=== PATIENT | female | born 1950 | race Caucasian/White ===

== ENCOUNTER 2020-12-19 06:14 | Inpatient (IN) | payer MEDICARE, OTHER ==
[2020-12-11 12:25] LABS: BASOPHILS % (AUTO) 0.8 % (0-1); EOSINOPHILS # (AUTO) 0.5 X10'3 (0-0.9); EOSINOPHILS % (AUTO) 8.7 % (0-6); LYMPHOCYTES # (AUTO) 1.2 X10'3 (1.1-4.8); LYMPHOCYTES % (AUTO) 21.3 % (21-51); MEAN CORPUSCULAR HEMOGLOBIN 31.4 PG (27.0-31.0); MEAN CORPUSCULAR HGB CONC 33.3 g/dL (33.0-36.5); MEAN CORPUSCULAR VOLUME 94.2 FL (78-98); MEAN PLATELET VOLUME 7.7 FL (7.4-10.4); MONOCYTES # (AUTO) 0.6 X10'3 (0-0.9); MONOCYTES % (AUTO) 10.3 % (2-12); NEUTROPHILS # (AUTO) 3.4 X10'3 (1.8-7.7); NEUTROPHILS % (AUTO) 58.9 % (42-75); PRE OP HEMATOCRIT 38.7 % (35.0-45.0); PRE OP HEMOGLOBIN 12.9 g/dL (12.0-16.0); PRE OP PLATELET COUNT 274 X10'3 (140-440); RED BLOOD COUNT 4.11 X10'6 (4.20-5.60); RED CELL DISTRIBUTION WIDTH 15.3 % (11.5-14.5)
[2020-12-11 12:35] LABS: ALBUMIN 3.5 G/DL (3.4-5.0); ALBUMIN/GLOBULIN RATIO 0.8 (1.1-1.5); ALKALINE PHOSPHATASE 138 IU/L (46-116); BLOOD UREA NITROGEN 5 MG/DL (7-18); BUN/CREATININE RATIO 7.2 (6.6-38.0); CALCIUM 8.6 MG/DL (8.5-10.1); CHLORIDE 104 MMOL/L (99-107); CREATININE 0.69 MG/DL (0.40-0.90); PRE OP ALT 24 U/L (30-65); PRE OP ANION GAP 8 (8-16); PRE OP AST 21 U/L (10-37); PRE OP BILIRUB, TOTAL 0.3 MG/DL (0.0-1.0); PRE OP GLUCOSE 95 MG/DL (70-104); PRE OP POTASSIUM 4.3 MMOL/L (3.4-5.1); PRE OP SODIUM 139 MMOL/L (135-145); TOTAL CARBON DIOXIDE 27.5 MMOL/L (24-32); TOTAL PROTEIN 7.7 G/DL (6.4-8.2); eGFR 84 ML/MIN
[~2020-12-19] VITALS: Ht 157.5 cm; Wt 80.0 kg
[2020-12-19] VITALS (19 sets, daily range): BP systolic 124–160; BP diastolic 60–82
[~2020-12-19 06:14] MED LIST: albuterol 2.5 MG/3 ML nebule NEB ONE; cefazolin/dext.iso 2gm/100ml IV ONE; famotidine 20mg tablet PO ONE
[2020-12-19] MEDS ORDERED: MONT10TA32 PO (06:49)
[2020-12-19] MEDS ORDERED: CHOL5000 PO (06:49)
[2020-12-19] MEDS ORDERED: GABA-534 PO (06:49)
[2020-12-19] MEDS ORDERED: FLUT1DIS PO (06:49)
[2020-12-19] MEDS ORDERED: FEXO-61 PO (06:49)
[2020-12-19] MEDS ORDERED: TRAM50TA2 PO (06:49)
[2020-12-19] MEDS ORDERED: MECO10005 PO (06:53)
[2020-12-19] MEDS ORDERED: AZEL205. BOTHNARES (06:53)
[2020-12-19] MEDS: ringers solution, lacted 1,000 ML IV SCH ×2 (07:10→14:53)
[2020-12-19] MEDS ORDERED: BUPIVAcaine/PF 2.5mg/ml (0.25%) 10ml vial ONE ×2 (09:17→10:57)
[2020-12-19] MEDS ORDERED: ringers solution, lacted 1,000 ML IV SCH (09:20)
[2020-12-19] MEDS ORDERED: proCHLORperazine 10 MG/2 ml inj IV PRN (09:20)
[2020-12-19] MEDS ORDERED: morphine 4 MG/ML inj SYRINge IV PRN (09:20)
[2020-12-19] MEDS ORDERED: morphine 2 MG/ML inj. syringe IV PRN (09:20)
[2020-12-19] MEDS ORDERED: ondansetron/PF 4mg/2ml inj IV PRN ×2 (09:20→11:50)
[2020-12-19] MEDS ORDERED: meperidine/PF 25mg/ml syringe IV PRN ×3 (09:20)
[2020-12-19] MEDS ORDERED: midazolam 1 mg/ML 2ml injection ONE (09:27)
[2020-12-19] MEDS ORDERED: fentaNYL /PF 50mcg/ml 5ml ampule ONE (09:28)
[2020-12-19] MEDS ORDERED: propofol inj 20 ML IV ONE (09:28)
[2020-12-19] MEDS ORDERED: rocuronium 10mg/ml inj IV ONE (09:28)
[2020-12-19] MEDS ORDERED: sevoflurane 250ml liquid IH ONE (09:39)
[2020-12-19] MEDS ORDERED: ondansetron/PF 4mg/2ml inj ONE (11:46)
[2020-12-19] MEDS ORDERED: dexamethasone sod phosphate 4mg/ml inj. ONE (11:47)
[2020-12-19] MEDS ORDERED: neostigmine methylsulfate 1 MG/ML 10ml vial ONE (11:48)
[2020-12-19] MEDS ORDERED: glycopyrrolate 0.2mg/ml inj ONE (11:49)
[2020-12-19] MEDS ORDERED: acetaminophen 325mg tablet PO PRN ×2 (11:50)
[2020-12-19] MEDS ORDERED: CADD PCA waste documentation MC PRN (11:50)
[2020-12-19] MEDS ORDERED: naloxone 0.4 mg/ml inj IV PRN (11:50)
[2020-12-19] MEDS ORDERED: HYDROcodone/acetaminophen 5mg/325mg tablet PO PRN (11:50)
--- NOTE | 2020-12-19 12:04 | NUR ---
Received from OR via SURGICAL BED , accompanied by Anesthesiologist LANDON and report given by Anesthesiolgist. PATIENT WITH 20G PIV IN RIGHT UE RUNNING LR AT 100. NO DRAINAGE PRESENT TO TOMASA PAD. ROYAL CATHETER IN PLACE. CLEAR YELLOW URINE IN ATRIUM. 10L MASK ON WITH 100% SATURATIONS. Addendum: 12/19/20 at 1218 by Moe Ramsey RN, RN Amended: Links added.
[2020-12-19] MEDS: HYDROmorph./NS 0.2 mg/ml CADD 100 ML IV SCH ×7 (12:28→23:00)
--- NOTE | 2020-12-19 13:00 | NUR ---
I have received report from ASHER Rosa and had the opportunity to ask questions and assume patient care.
[2020-12-19] MEDS ORDERED: traMADol 50MG tablet PO PRN (15:00)
--- NOTE | 2020-12-19 15:00 | NUR ---
Med rec faxed to pharmacy
[2020-12-19] MEDS: potassium cl 20mEq in 1/2 NS 1,000 ML IV SCH ×2 (15:55→21:50)
--- NOTE | 2020-12-19 18:57 | NUR ---
Problems reprioritized. Patient report given, questions answered & plan of care reviewed with Vickie RN.
[2020-12-19] MEDS: budesonide 0.5mg/2ml UD nebule IH SCH (20:54)
[2020-12-19] MEDS: albuterol 2.5 MG/3 ML nebule NEB SCH (20:55)
[2020-12-19] MEDS: gabapentin 400mg capsule PO SCH (21:45)
[2020-12-20] MEDS: HYDROmorph./NS 0.2 mg/ml CADD 100 ML IV SCH ×8 (01:00→15:00)
[2020-12-20] MEDS: potassium cl 20mEq in 1/2 NS 1,000 ML IV SCH (01:15)
[2020-12-20 02:00] VITALS: BP 114/56
[2020-12-20] MEDS: albuterol 2.5 MG/3 ML nebule NEB SCH ×2 (02:47→08:19)
[2020-12-20 06:00] VITALS: BP 113/55
--- NOTE | 2020-12-20 06:45 | NUR ---
Patient in room [facility]TH[facility] 4014. I have received report from Vickie RN and had the opportunity to ask questions and assume patient care.
[2020-12-20 06:58] LABS: BASOPHILS % (AUTO) 0.1 % (0-1); EOSINOPHILS % (AUTO) 0 % (0-6); HEMATOCRIT 33.6 % (35.0-45.0); HEMOGLOBIN 11.2 g/dl (12.0-16.0); LYMPHOCYTES # (AUTO) 0.6 X10'3 (1.1-4.8); LYMPHOCYTES % (AUTO) 4.9 % (21-51); MEAN CORPUSCULAR HEMOGLOBIN 31.2 PG (27.0-31.0); MEAN CORPUSCULAR HGB CONC 33.3 g/dL (33.0-36.5); MEAN CORPUSCULAR VOLUME 93.6 FL (78-98); MEAN PLATELET VOLUME 8.1 FL (7.4-10.4); MONOCYTES # (AUTO) 0.8 X10'3 (0-0.9); MONOCYTES % (AUTO) 6.8 % (2-12); NEUTROPHILS # (AUTO) 10.7 X10'3 (1.8-7.7); NEUTROPHILS % (AUTO) 88.2 % (42-75); PLATELET COUNT 215 X10'3 (140-440); RED BLOOD COUNT 3.59 X10'6 (4.20-5.60); RED CELL DISTRIBUTION WIDTH 15.5 % (11.5-14.5); WHITE BLOOD COUNT 12.1 X10'3 (4.5-11.0)
--- NOTE | 2020-12-20 07:00 | NUR ---
Patient in room ORTHO 4014. I have received report from Vickie RN with maribel RN and had the opportunity to ask questions and assume patient care.
[2020-12-20 07:19] LABS: ALANINE AMINOTRANSFERASE 15 U/L (12-78); ALBUMIN 2.9 G/DL (3.4-5.0); ALBUMIN/GLOBULIN RATIO 0.8 (1.1-1.5); ALKALINE PHOSPHATASE 122 IU/L (46-116); ANION GAP 8 (8-16); ASPARTATE AMINO TRANSFERASE 17 U/L (10-37); BILIRUBIN,TOTAL 0.5 MG/DL (0.1-1.0); BLOOD UREA NITROGEN 10 MG/DL (7-18); BUN/CREATININE RATIO 15.2 (6.6-38.0); CALCIUM 8.2 MG/DL (8.5-10.1); CHLORIDE 106 MMOL/L (99-107); CREATININE 0.66 MG/DL (0.40-0.90); GLUCOSE 120 MG/DL (70-104); POTASSIUM 4.7 MMOL/L (3.5-5.1); SODIUM 138 MMOL/L (135-145); TOTAL CARBON DIOXIDE 23.7 MMOL/L (24-32); TOTAL PROTEIN 6.5 G/DL (6.4-8.2); eGFR 88 ML/MIN
[2020-12-20] MEDS ORDERED: montelukast 10mg tablet PO SCH (08:00)
[2020-12-20] MEDS ORDERED: cyanocobalamin 500mcg tablet PO SCH (08:00)
[2020-12-20] MEDS ORDERED: loratadine 10mg tablet PO SCH (08:00)
[2020-12-20] MEDS: budesonide 0.5mg/2ml UD nebule IH SCH (08:19)
[2020-12-20] MEDS: gabapentin 400mg capsule PO SCH ×2 (09:16→15:50)
[2020-12-20 10:00] VITALS: BP 117/53
--- NOTE | 2020-12-20 17:12 | NUR ---
Pt DC to home with daughter and family. Pt is A & O x4 and in apparent distress. Pt and daughter verbalize understanding of ALL DC orders and the importance of following up with Dr Delgado. IV cath removed intact. Pt also educated on S & S after sx and when to return to the ED. Pt got dressed and was wheeled out to the front where daughter met her and took her home.
== END 2020-12-20 17:05 | disposition home or self-care (01) | DRG 743 ==
LOC: PAS 06:14 → ORTHO 4S 11:49
PROVIDERS: ADMIT Obstetrics & Gynecology; ATTEND Obstetrics & Gynecology
PROC: 0ULG7ZZ Occlusion of Vagina, Via Natural or Artificial Opening (ICD-10-PCS; 2020-12-19)
PROC: 0UT97ZZ Resection of Uterus, Via Natural or Artificial Opening (ICD-10-PCS; principal; 2020-12-19 09:39)
DX: N81.9 Female genital prolapse, unspecified (principal)
CPT/HCPCS: 36415; 80053; 82948; 85025; 86885; 86900; 86901; 87081; 88307; 94640; 94664; 94760; A4215; A4355; A4618; A6402; A7000; C1758; G0378; J1100; J1170; J2250; J2405; J2704; J2710; J3010; J3480; J3490; J7120; J7626; U0003; U0005